=== PATIENT | female | born 1955 | race African-American/Black ===

== ENCOUNTER 2020-02-25 06:20 | Emergency (ER) | payer SELFPAY ==
[~2020-02-25] VITALS: Ht 172.7 cm; Wt 139.1 kg
[2020-02-25 06:27] VITALS: Ht 172.7 cm; Wt 139.1 kg
[2020-02-25 07:16] LABS: BASOPHILS 0.2 % (0-2); HEMATOCRIT 39.1 % (36.0-48.0); HEMOGLOBIN 12.2 g/dL (12-16); IMMATURE GRANULOCYTES 0.2 % (0-5); LYMPHOCYTES 29.4 % (15-50); MCH 27.7 pg (26.0-34.0); MCHC 31.2 g/dL (31.0-37.0); MCV 88.9 fL (80.0-100.0); MEAN PLATELET VOLUME 11.3 fL (7.4-10.4); NEUTROPHILS 59.2 % (40-80); PLATELET COUNT 245 10x3/uL (130-400); RDW 15.9 % (11.5-14.5); WBC 5.4 10x3/uL (4.8-10.8)
[2020-02-25 07:23] LABS: CALC OSMOLALITY 289 mosm/kg (275-300); CALCIUM 9.1 mg/dL (8.5-10.1); CHLORIDE - SERUM 108 mmol/L (98-107); CREATININE - SERUM 1.1 mg/dL (0.6-1.3); GLUCOSE 111 mg/dL (74-106); POTASSIUM - SERUM 4.2 mmol/L (3.5-5.1); SODIUM 144 mmol/L (136-145); UREA NITROGEN 17 mg/dL (7-18); eGFR NON AFRICAN AMERICAN 53 mL/min (90-120)
[2020-02-25 07:31] LABS: ALBUMIN 3.4 g/dL (3.4-5.0); ALKALINE PHOSPHATASE 74 U/L (30-120); ALT (SGPT) 12 U/L (10-68); C-REACTIVE PROTEIN 1.8 mg/dL (0.0-0.9); LIPASE 121 U/L (73-393); PROTEIN - SERUM 7.3 g/dL (6.4-8.2); TROPONIN-I < 0.017 ng/mL (0.000-0.060)
[2020-02-25 08:04] LABS: T4 THYROXIN - FREE 1.3 ng/dL (0.76-1.46); THYROID STIMULATING HORMONE 4.3 uIU/mL (0.36-3.74)
[2020-02-25 08:08] LABS: BILIRUBIN NEGATIVE (NEGATIVE); KETONE NEGATIVE (NEGATIVE); NITRITE NEGATIVE (NEGATIVE); UROBILINOGEN NORMAL mg/dL (< 2)
[2020-02-25 08:09] LABS: BACTERIA FEW HPF (NONE SEEN)
[2020-02-25] MEDS ORDERED: MACROBID100 MG PO (08:27)
[2020-02-25 10:37] VITALS: BP 178/87
== END 2020-02-25 10:37 | disposition home or self-care (01) ==
LOC: D.ER 06:20
PROVIDERS: Emergency Medicine; Family Medicine
DX: N30.00 Acute cystitis without hematuria (principal); E65 Localized adiposity; K42.9 Umbilical hernia without obstruction or gangrene; I10 Essential (primary) hypertension; Z72.0 Tobacco use; R10.9 Unspecified abdominal pain

== ENCOUNTER 2020-02-25 17:16 | Emergency (ER) | payer SELFPAY ==
[~2020-02-25] VITALS: Ht 172.7 cm; Wt 139.1 kg
[~2020-02-25 17:16] MED LIST: MACROBID100 MG PO
[2020-02-25 17:28] VITALS: Ht 172.7 cm; Wt 139.1 kg
[2020-02-25 21:50] VITALS: BP 165/90
== END 2020-02-25 21:50 | disposition home or self-care (01) ==
LOC: D.ER 17:16
DX: K42.9 Umbilical hernia without obstruction or gangrene (principal); E03.9 Hypothyroidism, unspecified; I10 Essential (primary) hypertension